=== PATIENT | male | born 1975 | race Caucasian/White ===

== ENCOUNTER 2024-04-17 08:58 | Outpatient (CLI) | payer OTHER ==
[~2024-04-17 08:58] MED LIST: AVALIDE 150-12.1 TA1 PO
== END 2024-04-17 09:17 | disposition home or self-care (01) ==
LOC: SONOGRAMA 08:58
DX: M75.121 Complete rotator cuff tear or rupture of right shoulder, not specified as traumatic (principal)